=== PATIENT | female | born 1975 | race Caucasian/White ===

== ENCOUNTER 2023-03-14 13:54 | Emergency (ER) | payer SELFPAY ==
[~2023-03-14] VITALS: Ht 152.4 cm; Wt 60.3 kg
[2023-03-14] MEDS ORDERED: IV NS 0.9% 1,000 ML BAG IV ONE (14:30)
[2023-03-14 14:59] VITALS: BP 130/78; TEMP 98.5; O2SAT 100
== END 2023-03-14 14:59 | disposition home or self-care (01) ==
LOC: ER 14:01
DX: F60.0 Paranoid personality disorder (principal); T40.715A Adverse effect of cannabis, initial encounter; Y92.89 Other specified places as the place of occurrence of the external cause
CPT/HCPCS: J7030